=== PATIENT | male | born 1950 | race Caucasian/White ===

== ENCOUNTER 2019-05-07 07:02 | Emergency (ER) | payer MEDICARE ==
[2019-05-07 07:19] VITALS: BP 135/77
[2019-05-07] MEDS ORDERED: DECADRON IM ONE (08:48)
[2019-05-07] MEDS ORDERED: BENADRYL PO ONE (08:48)
[2019-05-07] MEDS ORDERED: PEPCID PO ONE (08:48)
--- NOTE | 2019-05-07 08:48 | Emergency Department Report ---
ED Rash HPI - HPI Chief Complaint: Skin Rash Stated Complaint: BODY RASH Time Seen by Provider: 05/07/19 08:47 Location: Upper Extremities, Lower Extremities Suspected Cause: Unknown Rash Symptoms: Yes Itching, No Facial Swelling, No Tongue/Oral Swelling, No Breathing Difficulties, No Choking Sensation, No Wheezing/Dyspnea, No Peeling, No Blistering, No Fever, No Lightheaded, No Malaise, No Myalgias Severity: moderate Other History: [id number] male presents with E Chin redness to generalized body 2 days. Patient states he was outside cutting grass about 4 days ago. Patient states itching is generalized and usually worse at night. ED Review of Systems ROS: Stated complaint: BODY RASH Other details as noted in HPI Comment: All other systems reviewed and negative ED Past Medical Hx - Past Medical History Previous Medical History?: No - Surgical History Past Surgical History?: No - Medications Home Medications: Home Medications Medication Instructions Recorded Confirmed Last Taken Type Calamine/Zinc Oxide [Calamine 1 applic TP DAILY #1 lotion 05/07/19 Unknown Rx Lotion] Prednisone [predniSONE 5 mg (6-Day 5 mg PO .TAPER #1 tab.ds.pk 05/07/19 Unknown Rx Pack, 21 Tabs)] hydrOXYzine HCL [Atarax] 25 mg PO QHS #20 tablet 05/07/19 Unknown Rx Rash Exam - Exam General: Vital signs noted. No distress. Alert and acting appropriately. HEENT: No Periorbital Edema, No Conjuctival Injection, No Chemosis, No Perioral Edema, No Tongue Edema, No Uvular Edema, No Compromised Airway, No Drooling Lungs: Yes Good Air Exchange (Normal Breath Sounds), No Wheezes, No Ronchi, No Stridor, No Cough, No Labored Respirations, No Retractions, No Use of Accessory Muscles, No Other Abnormal Lung Sounds Heart: Yes Regular, No Murmur Skin: Yes Urticarial Rash, Yes Maculopapular Rash, Yes Erythema, No Morbilliform rash, No Bulla(e), No Excoriations, No Weeping, No Tenderness, No Edema, No Encrustations, No Other Other: Positive: Abdomen Normal, Neurologic Normal, Musculoskeletal Normal ED Course Vital Signs 05/07/19 07:19 Temperature 98.2 F Pulse Rate 71 Respiratory 18 Rate Blood Pressure 135/77 [Left] ED Medical Decision Making - Medical Decision Making 68-year-old male presents with allergic/contact dermatitis. Patient received Decadron, Benadryl and Pepcid ED. Patient states the itching is resolved prior to discharge. Vital signs are normal patient is in no acute distress. Discussed follow-up with primary care physician in 3 days for reevaluation Palpation of the instructions as given. Critical care attestation.: If time is entered above; I have spent that time in minutes in the direct care of this critically ill patient, excluding procedure time. ED Disposition Clinical Impression: Rash and nonspecific skin eruption, Contact dermatitis Disposition: - TO HOME OR SELFCARE Is pt being admited?: No Does the pt Need Aspirin: No Condition: Stable Instructions: Contact Dermatitis (ED), Poison Aure (ED) Additional Instructions: Make sure to follow up with the primary care physician as discussed. Take all your medications as you've been prescribed. If you have any worsening symptoms or develop new symptoms please return to ED immediately. Prescriptions: hydrOXYzine HCL [Atarax] 25 mg PO QHS #20 tablet Calamine/Zinc Oxide [Calamine Lotion] 1 applic TP DAILY #1 lotion Prednisone [predniSONE 5 mg (6-Day Pack, 21 Tabs)] 5 mg PO .TAPER #1 tab.ds.pk Referrals: BATSHEVA MORRISON MD [Primary Care Provider] - 3-5 Days [facility] [Provider Group] - 3-5 Days Forms: Accompanied Note, Work/School Release Form(ED) Time of Disposition: 09:29
== END 2019-05-07 10:07 | disposition home or self-care (01) ==
LOC: ED 07:02
DX: L25.9 Unspecified contact dermatitis, unspecified cause (principal)
CPT/HCPCS: 96372; 99282; J1100